=== PATIENT | female | born 1955 | race Two or more races ===

== ENCOUNTER 2020-02-20 01:30 | Inpatient (IN) | payer MEDICAID ==
[~2020-02-20] VITALS: Ht 154.9 cm; Wt 74.8 kg
[2020-02-20] VITALS (8 sets, daily range): BP systolic 99–120; BP diastolic 36–96
[2020-02-20] MEDS ORDERED: ONDANSETRON HCL 4MG/2ML INJ IV STA (01:40)
[2020-02-20] MEDS ORDERED: MORPHINE SULFATE 4 MG/ML CPJ (NOT FOR IM USE) IV STA (01:40)
[2020-02-20] MEDS ORDERED: NITROGLYCERIN 0.4MG TABLET SL SL PRN ×2 (01:45→07:00)
[2020-02-20] MEDS ORDERED: ASPIRIN 81MG TABLET PO ONE (01:45)
[2020-02-20 02:14] LABS: HEMATOCRIT. 38.9 % (36.0-48.0); MEAN CORPUSCULAR HEMOGLOBIN 31.7 pg (28.0-32.0); MEAN CORPUSCULAR VOLUME 94.7 fL (81.0-99.0); MEAN PLATELET VOLUME 9.4 fl (7.4-10.4); PLATELET 79 x1000/uL (130-400); RED BLOOD CELL COUNT 4.11 mill/uL (4.2-5.4); RED CELL DISTRIBUTION WIDTH 16.5 % (11.6-14.6)
[2020-02-20] MEDS ORDERED: FENTANYL CITRATE/PF 50MCG/ML 2ML VIAL IV ONE (02:15)
[2020-02-20 02:19] LABS: CHLORIDE 95 mEq/L (98-107)
[2020-02-20 02:23] LABS: ETHANOL BLOOD < 10 mg/dL
[2020-02-20] MEDS ORDERED: POTASSIUM CHLORIDE 20MEQ TABLET SR PO SCH (03:00)
[2020-02-20] MEDS ORDERED: IOHEXOL-350 100 ML BOTTLE ONE (03:27)
[2020-02-20] MEDS ORDERED: POTASSIUM CHLORIDE INJ 40 MEQ in DEXT 5% WATER 250 ML IV SCH (04:00)
[2020-02-20 04:34] LABS: *AMPHETAMINES SCREEN URINE NEGATIVE (NEGATIVE); *BARBITURATES SCREEN URINE NEGATIVE (NEGATIVE); *BENZODIAZEPINES SCREEN URINE NEGATIVE (NEGATIVE); METHADONE URINE SCREEN NEGATIVE (NEGATIVE); OPIATES URINE SCREEN PRESUMTIVE POSITIVE (NEGATIVE)
[2020-02-20 04:35] LABS: CANNABINOID URINE SCREEN PRESUMTIVE POSITIVE (NEGATIVE); PHENCYCLIDINE URINE SCREEN NEGATIVE (NEGATIVE)
[2020-02-20 04:42] LABS: *COCAINE SCREEN URINE NEGATIVE (NEGATIVE)
[2020-02-20 05:02] LABS: PLATELET ESTIMATE DECREASED
[2020-02-20] MEDS ORDERED: POTASSIUM CHLORIDE 20MEQ TABLET SR PO NR (07:00)
[2020-02-20] MEDS ORDERED: DEXTROSE 50% WATER 50ML SYRINGE IV PRN (07:00)
[2020-02-20] MEDS ORDERED: IPRATROPIUM/ALBUTEROL 0.5-3(2.5)MG/3ML NEB NEB PRN (07:00)
[2020-02-20] MEDS ORDERED: MAGNESIUM/ALUMINUM HYDROXIDE/SIMETHICONE 30ML UDC PO PRN (07:00)
[2020-02-20] MEDS ORDERED: ZOLPIDEM TARTRATE 5MG TABLET PO PRN (07:00)
[2020-02-20] MEDS ORDERED: GUAIFENESIN 200MG/10ML SUGAR FREE UDC PO PRN (07:00)
[2020-02-20] MEDS ORDERED: ACETAMINOPHEN 325MG TABLET PO PRN ×2 (07:00)
[2020-02-20] MEDS ORDERED: ONDANSETRON HCL 4MG/2ML INJ IV PRN (07:00)
[2020-02-20] MEDS ORDERED: KETOROLAC 15MG/ML VIAL IV PRN (07:00)
[2020-02-20] MEDS ORDERED: CLONIDINE 0.1MG TABLET PO PRN (07:00)
[2020-02-20] MEDS ORDERED: DOCUSATE SODIUM 100MG CAPSULE PO PRN (07:00)
[2020-02-20] MEDS ORDERED: KCL 20MEQ/100ML PREMIX 100 ML IV SCH (08:00)
[2020-02-20] MEDS: INSULIN LISPRO 100 UNITS/ML SUBCUT SCH ×4 (08:11→21:00)
[2020-02-20] MEDS: SODIUM CHLORIDE 0.9% 1,000 ML IV SCH ×2 (08:11→16:45)
[2020-02-20] MEDS: BLOOD SUGAR DIAGNOSTIC STRIP TEST SCH ×4 (08:12→21:02)
[2020-02-20] MEDS: ENOXAPARIN 40MG/0.4ML SYR SUBCUT SCH (09:00)
[2020-02-20] MEDS ORDERED: METO-396 MT (10:14)
[2020-02-20] MEDS ORDERED: FERR236T3 MT (10:14)
[2020-02-20] MEDS ORDERED: METF-414 MT (10:14)
[2020-02-20] MEDS: PANTOPRAZOLE SODIUM 40 MG/VIAL IV SCH (10:36)
[2020-02-20] MEDS: SUCRALFATE 1 G/10 ML UDC PO SCH ×4 (10:36→21:02)
[2020-02-20] MEDS: ZINC SULFATE 220 MG ( 50 ) CAPSULE PO SCH (10:36)
[2020-02-20] MEDS: ASCORBIC ACID 500 MG TABLET PO SCH ×2 (10:36→21:02)
[2020-02-20] MEDS ORDERED: MAGNESIUM 2 G PREMIX 50 ML IV SCH (14:00)
[2020-02-20 16:15] LABS: CREATINE KINASE 119 IU/L (26-192)
[2020-02-20 16:16] LABS: CREATINE KINASE MB FRACTION < 1.0 ng/mL (0.5-3.6)
[2020-02-20 23:45] LABS: CREATINE KINASE 107 IU/L (26-192)
[2020-02-20 23:46] LABS: CREATINE KINASE MB FRACTION < 1.0 ng/mL (0.5-3.6)
[2020-02-21] VITALS (7 sets, daily range): BP systolic 117–151; BP diastolic 48–83
[2020-02-21] MEDS: BLOOD SUGAR DIAGNOSTIC STRIP TEST SCH (06:36)
[2020-02-21] MEDS: SUCRALFATE 1 G/10 ML UDC PO SCH (06:36)
[2020-02-21 07:07] LABS: CHLORIDE 111 mEq/L (98-107)
[2020-02-21 07:19] LABS: PHOSPHORUS 2.4 mg/dL (2.5-4.9)
[2020-02-21 07:20] LABS: LDL CHOLESTEROL 101 mg/dL (5-100)
[2020-02-21] MEDS: INSULIN LISPRO 100 UNITS/ML SUBCUT SCH (07:20)
[2020-02-21 07:21] LABS: HDL CHOLESTEROL 72 mg/dL (40-59)
[2020-02-21 07:32] LABS: BASOPHILS % 0.7 % (0.0-2.0); EOSINOPHILS % 2.6 % (0.0-5.0); HEMATOCRIT. 38.1 % (36.0-48.0); HEMOGLOBIN. 12.5 g/dL (12.0-16.0); LYMPHOCYTES % 30.2 % (20.0-50.0); MEAN CORPUSCULAR HEMOGLOBIN 31.4 pg (28.0-32.0); MEAN CORPUSCULAR VOLUME 95.9 fL (81.0-99.0); MONOCYTES % 9.3 % (2.0-8.0); NEUTROPHILS % 57.2 % (40.0-76.0); PLATELET 56 x1000/uL (130-400); RED BLOOD CELL COUNT 3.97 mill/uL (4.2-5.4); RED CELL DISTRIBUTION WIDTH 17.1 % (11.6-14.6)
[2020-02-21] MEDS: ENOXAPARIN 40MG/0.4ML SYR SUBCUT SCH (09:00)
[2020-02-21] MEDS: SODIUM CHLORIDE 0.9% 1,000 ML IV SCH (09:27)
[2020-02-21] MEDS: PANTOPRAZOLE SODIUM 40 MG/VIAL IV SCH (09:42)
[2020-02-21] MEDS: ASCORBIC ACID 500 MG TABLET PO SCH (09:42)
[2020-02-21] MEDS: ZINC SULFATE 220 MG ( 50 ) CAPSULE PO SCH (09:42)
[2020-02-21] MEDS ORDERED: SUCR1TAB30 PO (11:06)
[2020-02-21 14:43] LABS: CLARITY URINE CLOUDY (CLEAR); COLOR URINE YELLOW (YELLOW); KETONES URINE NEGATIVE (NEGATIVE); LEUKOCYTE ESTERASE URINE NEGATIVE (NEGATIVE); NITRITE URINE NEGATIVE (NEGATIVE); OCCULT BLOOD URINE NEGATIVE (NEGATIVE); PROTEIN URINE NEGATIVE (NEGATIVE); SPECIFIC GRAVITY URINE 1.027 (1.005-1.030)
== END 2020-02-21 11:29 | disposition home or self-care (01) | DRG 241 ==
LOC: ER 01:57 → 3WST 05:23 → ENRESERV 08:18
PROVIDERS: ADMIT Internal Medicine; ATTEND Internal Medicine
DX: K29.70 Gastritis, unspecified, without bleeding (principal); E87.6 Hypokalemia; E87.1 Hypo-osmolality and hyponatremia; E11.9 Type 2 diabetes mellitus without complications; I10 Essential (primary) hypertension; E83.42 Hypomagnesemia; D69.6 Thrombocytopenia, unspecified; F12.10 Cannabis abuse, uncomplicated; F10.10 Alcohol abuse, uncomplicated; Z88.0 Allergy status to penicillin; Z79.899 Other long term (current) drug therapy
CPT/HCPCS: 36415; 71045; 71275; 74174; 76700; 80053; 80061; 80305; 80320; 81003; 82550; 82553; 82962; 83036; 83735; 83880; 84100; 84484; 85025; 93005; 93970; 99291; C9113; J1650; J2270; J2405; J3010; J3475; J3480; J7060; Q9967; G0480

== ENCOUNTER 2020-04-23 20:14 | Emergency (ER) | payer MEDICARE, MEDICAID ==
[~2020-04-23] VITALS: Ht 152.4 cm; Wt 68.0 kg
[~2020-04-23 20:14] MED LIST: ASCO500C18 MT; ASPI-1497 MT; FERR236T3 MT; FOLI-43 MT; METF-414 MT; METO-396 MT; PROT40 MT; SUCR1TAB30 MT
[2020-04-23 20:33] VITALS: BP 130/57
[2020-04-23 23:01] LABS: BASOPHILS % 0.9 % (0.0-2.0); EOSINOPHILS % 1.9 % (0.0-5.0); HEMATOCRIT. 38.5 % (36.0-48.0); LYMPHOCYTES % 20.3 % (20.0-50.0); MEAN CORPUSCULAR HEMOGLOBIN 33.2 pg (28.0-32.0); MEAN CORPUSCULAR VOLUME 98.1 fL (81.0-99.0); MEAN PLATELET VOLUME 9.2 fl (7.4-10.4); MONOCYTES % 7.4 % (2.0-8.0); NEUTROPHILS % 69.5 % (40.0-76.0); PLATELET 83 x1000/uL (130-400); RED BLOOD CELL COUNT 3.93 mill/uL (4.2-5.4); RED CELL DISTRIBUTION WIDTH 15.2 % (11.6-14.6)
[2020-04-23 23:07] LABS: CHLORIDE 103 mEq/L (98-107)
[2020-04-23] MEDS ORDERED: SODIUM CHLORIDE 0.9% 1,000 ML IV ONE (23:30)
== END 2020-04-23 23:58 | disposition home or self-care (01) ==
LOC: ER 20:14
DX: R42 Dizziness and giddiness (principal); R51.9 Headache, unspecified; E11.9 Type 2 diabetes mellitus without complications; I10 Essential (primary) hypertension; E78.00 Pure hypercholesterolemia, unspecified; Z79.82 Long term (current) use of aspirin; Z88.0 Allergy status to penicillin; Z79.899 Other long term (current) drug therapy
CPT/HCPCS: 36415; 70450; 71045; 80053; 83880; 84484; 85025; 93005; 99285; J7030

== ENCOUNTER 2021-04-27 23:55 | Emergency (ER) | payer MEDICARE, MEDICAID ==
[~2021-04-27] VITALS: Ht 165.1 cm; Wt 82.0 kg
[2021-04-28 05:10] VITALS: BP 126/55
== END 2021-04-28 05:14 | disposition home or self-care (01) ==
LOC: ER 23:55
DX: R07.2 Precordial pain (principal); I25.9 Chronic ischemic heart disease, unspecified; Z95.5 Presence of coronary angioplasty implant and graft; I25.10 Atherosclerotic heart disease of native coronary artery without angina pectoris; R61 Generalized hyperhidrosis; I10 Essential (primary) hypertension; E11.9 Type 2 diabetes mellitus without complications
CPT/HCPCS: 36415; 71045; 82962; 84484; 99285